=== PATIENT | female | born 1990 | race Caucasian/White ===

== ENCOUNTER 2017-01-09 23:43 | Emergency (ER) | payer SELFPAY ==
[~2017-01-09] VITALS: Ht 160 cm; Wt 61.7 kg
--- NOTE | 2017-01-10 01:01 | NUR ---
Pt seen by Dr. Bower. Pt had breast lift and augmentation done on the in [place] and was unable to follow up. Pt had dehiscence under the right breast and a few remaining sutures that did not disolve. Sutures removed, wound cleaned, triple antibiotic ointment applied, drsg applied. Pt stable for discharge per Dr. Bower. Pt given ACI. Pt verbalized understanding of dc instructions. Pt ambulated out of ER with steady gait and ride home.
[2017-01-10 01:11] VITALS: BP 101/67
== END 2017-01-10 01:12 | disposition home or self-care (01) ==
LOC: ER 23:43
DX: T81.31XA Disruption of external operation (surgical) wound, not elsewhere classified, initial encounter (principal)
CPT/HCPCS: 99283; A4217; A4663

== ENCOUNTER 2017-01-12 23:09 | Emergency (ER) | payer MEDICAID ==
[~2017-01-12] VITALS: Ht 157.5 cm; Wt 61.7 kg
--- NOTE | 2017-01-13 | NUR ---
Patient discharged to home in stable conditon. Written and verbal after care instructions given. Patient verbalizes understanding of instructions.
[2017-01-13 00:01] VITALS: BP 112/72
== END 2017-01-13 00:02 | disposition home or self-care (01) ==
LOC: ER 23:10
DX: T81.30XA Disruption of wound, unspecified, initial encounter (principal)
CPT/HCPCS: A4663

== ENCOUNTER 2017-03-16 23:15 | Emergency (ER) | payer SELFPAY ==
[~2017-03-16] VITALS: Ht 165.1 cm; Wt 61.2 kg
--- NOTE | 2017-03-17 00:06 | NUR ---
Patient discharged to home in stable conditon. Written and verbal after care instructions given. Patient verbalizes understanding of instructions.ambulated from er w/ stable gaits, all belongings w/ pt.
[2017-03-17 00:09] VITALS: BP 125/75
== END 2017-03-17 00:11 | disposition home or self-care (01) ==
LOC: ER 23:22
DX: Z48.00 Encounter for change or removal of nonsurgical wound dressing (principal)
CPT/HCPCS: 99281; A4663

== ENCOUNTER 2018-09-18 20:55 | Emergency (ER) | payer OTHER ==
[~2018-09-18] VITALS: Ht 157.5 cm; Wt 63.0 kg
[2018-09-18] MEDS ORDERED: IV NORMAL SALINE 1000 ML BAG IV ONE (21:30)
[2018-09-18] MEDS ORDERED: KETOROLAC TROMETHAMINE 15 MG INJ IV ONE (21:30)
[2018-09-18] MEDS ORDERED: KETOROLAC TROMETHAMINE 30 MG INJ ONE (21:35)
[2018-09-18 21:48] LABS: BASOPHILS # (AUTO) 0.1 K/uL (0.0-8.0); BASOPHILS % (AUTO) 0.5 % (0.0-2.0); EOSINOPHILS # (AUTO) 0.1 K/uL (0.0-0.7); EOSINOPHILS % (AUTO) 0.6 % (0.0-7.0); HEMATOCRIT 41.5 % (31.2-41.9); HEMOGLOBIN 13.8 g/dL (10.9-14.3); LYMPHOCYTES # (AUTO) 1.6 K/uL (20.0-40.0); LYMPHOCYTES % (AUTO) 12.2 % (20.5-51.5); MEAN CORPUSCULAR HEMOGLOBIN 29.4 uug (24.7-32.8); MEAN CORPUSCULAR HGB CONC 33 g/dL (32.3-35.6); MEAN CORPUSCULAR VOLUME 88.1 fL (75.5-95.3); MONOCYTES # (AUTO) 0.8 K/uL (2.0-10.0); MONOCYTES % (AUTO) 6.2 % (0.0-11.0); NEUTROPHILS # (AUTO) 10.8 K/uL (1.8-8.9); NEUTROPHILS % (AUTO) 80.5 % (38.5-71.5); PLATELET COUNT (AUTO) 222 K/uL (179-408); RED BLOOD CELL COUNT(AUTO) 4.71 MIL/uL (3.63-4.92); WHITE BLOOD COUNT (AUTO) 13.4 K/uL (3.8-11.8)
[2018-09-18 21:49] LABS: *BILIRUBIN,URIN NEGATIVE (NEGATIVE); *BLOOD, URINE 1+ (NEGATIVE); *CLARITY,URINE CLEAR (CLEAR); *COLOR,URINE YELLOW (YELLOW); *KETONES,URINE NEGATIVE (NEGATIVE); *UROBILINOGEN,URINE 0.2 E.U./dl (NORMAL); LEUKOCYTE ESTERASE ,URINE 1+ (NEGATIVE); NITRITE, URINE NEGATIVE (NEGATIVE); PH,URINE 7.5 (5.0-8.0); UGLUCOSE NEGATIVE (NEGATIVE)
[2018-09-18 21:53] LABS: *URINE HCG, QUAL NEGATIVE (NEGATIVE)
[2018-09-18 21:54] LABS: CREATININE 0.6 mg/dL (0.6-1.3); POTASSIUM 3.6 mmol/L (3.5-5.1)
[2018-09-18 21:59] LABS: BACTERIA,URINE FEW /HPF (NONE SEEN); RBC,URINE 0-3 /HPF (0-3); SQUAMOUS EPITHELIAL CELL,UR MODERATE /HPF (NONE SEEN)
[2018-09-18 22:05] LABS: BILIRUBIN,DIRECT 0.2 mg/dL (0.0-0.2); BILIRUBIN,TOTAL 1.5 mg/dL (0.2-1.0); TOTAL PROTEIN, SERUM 8.5 g/dL (6.4-8.2)
--- NOTE | 2018-09-18 22:05 | NUR ---
US TECH INTO DO PROCEDURE
--- NOTE | 2018-09-18 22:20 | NUR ---
PATIENT REQUESTING TO TAKE TORADOL NOW. REFUSED MED EARLIER
--- NOTE | 2018-09-18 22:52 | NUR ---
DR GUERRA INTO RE EVAL PATIENT ABDOMINAL PAIN. PATIENT TENDER. ORDERS RECIEVED AND CARRIED OUT.
[2018-09-18] MEDS ORDERED: SWABABLE VALVE TRANSFER SET EA MC ONE (22:59)
[2018-09-18] MEDS ORDERED: IOHEXOL 300MG/ML 100 ML INFUS..BTL ONE (22:59)
[2018-09-18] MEDS ORDERED: IV NORMAL SALINE 250 ML IV ONE (22:59)
--- NOTE | 2018-09-19 00:49 | NUR ---
IV removed. Catheter intact and site benign. Pressure and 4x4 gauze applied to site. No bleeding noted.
--- NOTE | 2018-09-19 00:52 | NUR ---
Patient discharged to home in stable conditon. Written and verbal after care instructions given. Patient verbalizes understanding of instructions. WALKED OUT OF ER WITH NO DISTRESS NOTED
[2018-09-19 00:53] VITALS: BP 128/88
== END 2018-09-19 00:54 | disposition home or self-care (01) ==
LOC: ER 20:56
DX: N39.0 Urinary tract infection, site not specified (principal)
CPT/HCPCS: 36415; 74177; 76856; 80048; 80076; 81000; 81001; 83690; 84703; 85025; 87086; 96374; 99284; J1885; Q9967; A4663; J7030; J7050

== ENCOUNTER 2019-03-27 19:55 | Emergency (ER) | payer OTHER ==
[~2019-03-27] VITALS: Ht 157.5 cm; Wt 66.2 kg
--- NOTE | 2019-03-27 19:55 | NUR ---
Dr. Hanson at bedside for MSE
[2019-03-27 20:07] LABS: *BILIRUBIN,URIN NEGATIVE (NEGATIVE); *BLOOD, URINE 1+ (NEGATIVE); *CLARITY,URINE SLIGHTLY CLOUDY (CLEAR); *COLOR,URINE YELLOW (YELLOW); *KETONES,URINE NEGATIVE (NEGATIVE); *UROBILINOGEN,URINE 0.2 E.U./dl (NORMAL); LEUKOCYTE ESTERASE ,URINE 1+ (NEGATIVE); NITRITE, URINE NEGATIVE (NEGATIVE); UGLUCOSE NEGATIVE (NEGATIVE)
[2019-03-27 20:08] LABS: *URINE HCG, QUAL NEGATIVE (NEGATIVE)
[2019-03-27] MEDS ORDERED: SULFAMETH/TRIMETH 800/160 MG TABLET PO ONE (20:30)
[2019-03-27 20:38] LABS: BACTERIA,URINE FEW /HPF (NONE SEEN); SQUAMOUS EPITHELIAL CELL,UR FEW /HPF (NONE SEEN)
--- NOTE | 2019-03-27 20:38 | NUR ---
Patient discharged to home in stable conditon. Written and verbal after care instructions given. Patient verbalizes understanding of instructions. Patient ambulating with steady gait
[2019-03-27] MEDS ORDERED: SULFAMETH/TRIMETH 800/160 MG TABLET ONE (20:39)
[2019-03-27 21:30] VITALS: BP 126/73
== END 2019-03-27 20:38 | disposition home or self-care (01) ==
LOC: ER 19:56
DX: N39.0 Urinary tract infection, site not specified (principal); F17.200 Nicotine dependence, unspecified, uncomplicated
CPT/HCPCS: 84703; 87086; A4663

== ENCOUNTER 2019-08-16 16:30 | Emergency (ER) | payer OTHER ==
[~2019-08-16] VITALS: Ht 157.5 cm; Wt 65.8 kg
--- NOTE | 2019-08-16 16:52 | NUR ---
Dr Hanson at the bedside for MSE.
[2019-08-16 17:00] LABS: *BILIRUBIN,URIN NEGATIVE (NEGATIVE); *BLOOD, URINE 1+ (NEGATIVE); *COLOR,URINE LIGHT YELLOW (YELLOW); *KETONES,URINE NEGATIVE (NEGATIVE); *UROBILINOGEN,URINE 0.2 E.U./dl (NORMAL); LEUKOCYTE ESTERASE ,URINE TRACE (NEGATIVE); NITRITE, URINE NEGATIVE (NEGATIVE); PH,URINE 8.5 (5.0-8.0); UGLUCOSE NEGATIVE (NEGATIVE)
[2019-08-16 17:01] LABS: *URINE HCG, QUAL NEGATIVE (NEGATIVE)
[2019-08-16 17:05] LABS: *CLARITY,URINE SLIGHTLY HAZY (CLEAR)
[2019-08-16 17:06] LABS: BACTERIA,URINE FEW /HPF (NONE SEEN); SQUAMOUS EPITHELIAL CELL,UR MODERATE /HPF (NONE SEEN)
[2019-08-16] MEDS ORDERED: AZITHROMYCIN 250 MG TABLET ONE (17:28)
[2019-08-16] MEDS ORDERED: METRONIDAZOLE 500 MG TABLET ONE (17:29)
[2019-08-16] MEDS ORDERED: METRONIDAZOLE 500 MG TABLET PO ONE (17:30)
[2019-08-16] MEDS ORDERED: AZITHROMYCIN 250 MG TABLET PO ONE (17:30)
[2019-08-16 17:33] VITALS: BP 120/77
--- NOTE | 2019-08-16 17:35 | NUR ---
Patient discharged to home in stable condition. Written and verbal after care instructions given. Patient verbalizes understanding of instructions. Stressed follow up or return to ER for worsening s/s.
== END 2019-08-16 17:35 | disposition home or self-care (01) ==
LOC: ER 16:30
DX: N39.0 Urinary tract infection, site not specified (principal)
CPT/HCPCS: 84703; 87086; A4663; Q0144

== ENCOUNTER 2019-11-06 17:14 | Emergency (ER) | payer OTHER ==
[~2019-11-06] VITALS: Ht 157.5 cm; Wt 58.1 kg
--- NOTE | 2019-11-06 17:25 | NUR ---
Dr. Herrera at bedside for MSE
--- NOTE | 2019-11-06 17:54 | NUR ---
Patient discharged to home in stable condition. Written and verbal after care instructions given. Patient verbalizes understanding of instructions. Stressed follow up or return to ER for worsening s/s. Patient ambulating with steady gait. NAD noted
[2019-11-06 17:55] VITALS: BP 106/83
== END 2019-11-06 17:54 | disposition home or self-care (01) ==
LOC: ER 17:18
DX: L03.115 Cellulitis of right lower limb (principal); S90.811A Abrasion, right foot, initial encounter; X58.XXXA Exposure to other specified factors, initial encounter; Y93.01 Activity, walking, marching and hiking; Y92.89 Other specified places as the place of occurrence of the external cause
CPT/HCPCS: A4663

== ENCOUNTER 2021-01-10 20:05 | Emergency (ER) | payer MEDICAID, OTHER ==
[~2021-01-10] VITALS: Ht 157.5 cm; Wt 61.7 kg
[2021-01-10 20:19] LABS: *BILIRUBIN,URIN NEGATIVE (NEGATIVE); *BLOOD, URINE 2+ (NEGATIVE); *CLARITY,URINE CLOUDY (CLEAR); *COLOR,URINE DARK YELLOW (YELLOW); *KETONES,URINE TRACE (NEGATIVE); LEUKOCYTE ESTERASE ,URINE 1+ (NEGATIVE); NITRITE, URINE POSITIVE (NEGATIVE); UGLUCOSE TRACE (NEGATIVE)
[2021-01-10 20:25] LABS: BACTERIA,URINE MODERATE /HPF (NONE SEEN); SQUAMOUS EPITHELIAL CELL,UR FEW /HPF (NONE SEEN); WBC,URINE TNTC /HPF (0-3)
[2021-01-10 20:26] LABS: URINE AMORPHOUS URATE MANY /HPF
[2021-01-10 20:58] LABS: *BILIRUBIN,URIN NEGATIVE (NEGATIVE); *BLOOD, URINE NEGATIVE (NEGATIVE); *CLARITY,URINE CLEAR (CLEAR); *COLOR,URINE YELLOW (YELLOW); *KETONES,URINE NEGATIVE (NEGATIVE); *UROBILINOGEN,URINE 0.2 E.U./dl (NORMAL); LEUKOCYTE ESTERASE ,URINE NEGATIVE (NEGATIVE); NITRITE, URINE NEGATIVE (NEGATIVE); PH,URINE 6.5 (5.0-8.0); UGLUCOSE NEGATIVE (NEGATIVE)
[2021-01-10] MEDS ORDERED: PHENAZOPYRIDINE HCL 100 MG TABLET PO ONE (21:00)
[2021-01-10] MEDS ORDERED: SULFAMETH/TRIMETH 800/160 MG TABLET PO ONE (21:00)
[2021-01-10] MEDS ORDERED: PHEN-705 PO (21:04)
[2021-01-10] MEDS ORDERED: SULF1TAB48 PO (21:04)
--- NOTE | 2021-01-10 21:23 | NUR ---
Patient discharged to home in stable condition. Written and verbal after care instructions given. Patient verbalizes understanding of instructions. Stressed follow up or return to ER for worsening s/s. NAD. VSS. All belongings taken.
[2021-01-10] MEDS ORDERED: SULFAMETH/TRIMETH 800/160 MG TABLET ONE (21:24)
[2021-01-10] MEDS ORDERED: PHENAZOPYRIDINE HCL 100 MG TABLET ONE (21:24)
[2021-01-10 21:28] VITALS: BP 100/79
== END 2021-01-10 21:29 | disposition home or self-care (01) ==
LOC: ER 20:07
DX: N30.90 Cystitis, unspecified without hematuria (principal); Z98.82 Breast implant status
CPT/HCPCS: 87077; 87086; A4663

== ENCOUNTER 2021-06-24 15:40 | Emergency (ER) | payer OTHER ==
[~2021-06-24] VITALS: Ht 157.5 cm; Wt 63.5 kg
[~2021-06-24 15:40] MED LIST: PHEN-705 PO; SULF1TAB48 PO
[2021-06-24] MEDS ORDERED: KETOROLAC TROMETHAMINE 15 MG INJ IVP ONE (17:00)
[2021-06-24] MEDS ORDERED: IV NORMAL SALINE 1000 ML BAG IV ONE (17:00)
[2021-06-24] MEDS ORDERED: METOCLOPRAMIDE HCL 10 MG/2 ML VIAL IV ONE (17:00)
[2021-06-24 17:06] LABS: HEMATOCRIT 36.9 % (31.2-41.9); MEAN CORPUSCULAR HEMOGLOBIN 28.3 uug (24.7-32.8); MEAN CORPUSCULAR VOLUME 85.2 fL (75.5-95.3); PLATELET COUNT (AUTO) 265 K/uL (179-408)
[2021-06-24] MEDS ORDERED: KETOROLAC TROMETHAMINE 15 MG INJ ONE (17:07)
[2021-06-24] MEDS ORDERED: METOCLOPRAMIDE HCL 10 MG/2 ML VIAL ONE (17:07)
[2021-06-24 17:12] LABS: CREATININE 0.7 mg/dL (0.6-1.3); POTASSIUM 3.8 mmol/L (3.5-5.1)
[2021-06-24 17:18] LABS: BILIRUBIN,DIRECT 0.1 mg/dL (0.0-0.2); BILIRUBIN,TOTAL 0.4 mg/dL (0.2-1.0); TOTAL PROTEIN, SERUM 7.5 g/dL (6.4-8.2)
[2021-06-24] MEDS ORDERED: ONDA4TAB5 PO (17:48)
[2021-06-24] MEDS ORDERED: DEXAMETHASONE SOD PHOSPHATE 4 MG INJ IV ONE (18:00)
[2021-06-24] MEDS ORDERED: DEXAMETHASONE SOD PHOSPHATE 4 MG INJ ONE ×2 (18:08→18:12)
[2021-06-25 09:46] VITALS: BP 110/62
== END 2021-06-24 18:00 | disposition home or self-care (01) ==
LOC: ER 15:43
DX: B34.9 Viral infection, unspecified (principal); Z20.822 Contact with and (suspected) exposure to COVID-19; E86.0 Dehydration; Z91.011 Allergy to milk products; Z91.018 Allergy to other foods
CPT/HCPCS: 36415; 80048; 80076; 83690; 84702; 85025; 86403; 87070; 87400; 87426; 96361; 96374; 96375; 99284; J1100 ×2; J1885; J2765; A4663; J7030

== ENCOUNTER 2022-02-14 14:07 | Emergency (ER) | payer OTHER ==
[~2022-02-14] VITALS: Ht 154.9 cm; Wt 60.8 kg
[~2022-02-14 14:07] MED LIST changes: +ONDA4TAB5 PO
[2022-02-14 14:51] LABS: *BILIRUBIN,URIN 1+ (NEGATIVE); *BLOOD, URINE 3+ (NEGATIVE); *CLARITY,URINE CLOUDY (CLEAR); *COLOR,URINE DARK YELLOW (YELLOW); *KETONES,URINE 1+ (NEGATIVE); *UROBILINOGEN,URINE 0.2 E.U./dl (NORMAL); LEUKOCYTE ESTERASE ,URINE 1+ (NEGATIVE); NITRITE, URINE NEGATIVE (NEGATIVE); PH,URINE 5.5 (5.0-8.0); UGLUCOSE NEGATIVE (NEGATIVE)
[2022-02-14 14:53] LABS: *URINE HCG, QUAL NEGATIVE (NEGATIVE)
[2022-02-14 14:59] LABS: RBC,URINE 80-100 /HPF (0-3)
[2022-02-14 15:00] LABS: SQUAMOUS EPITHELIAL CELL,UR MODERATE /HPF (NONE SEEN)
--- NOTE | 2022-02-14 15:00 | NUR ---
Pt arrived with c/o pain on the right lower back radiating to the RLQ of the abdomen, rated 10/10, dysuria present, manifested facial grimacing and guarding of the site. Pt stated that she thinks she has UTI since she's familiar with the symptoms and that she had hx of uti. Seen by HAROON for MSE.
[2022-02-14 15:01] LABS: BACTERIA,URINE FEW /HPF (NONE SEEN)
[2022-02-14] MEDS ORDERED: CEPH500T PO (15:14)
[2022-02-14 15:15] LABS: WBC,URINE 20-50 /HPF (0-3)
[2022-02-14] MEDS ORDERED: CEphaleXIN 500 MG CAPSULE PO ONE (15:15)
[2022-02-14] MEDS ORDERED: CEphaleXIN 500 MG CAPSULE ONE (15:15)
--- NOTE | 2022-02-14 15:22 | NUR ---
Pt discharged to home in stable condition. Received first dose of Keflex. Written and verbal after care instructions given. Pt verbalizes understanding of instructions. Stressed follow up or return to ER for worsening s/s.
[2022-02-14 15:25] VITALS: BP 132/76
== END 2022-02-14 15:20 | disposition home or self-care (01) ==
LOC: ER 14:10
DX: N39.0 Urinary tract infection, site not specified (principal); R31.9 Hematuria, unspecified; Z98.82 Breast implant status; Z87.440 Personal history of urinary (tract) infections
CPT/HCPCS: 84703; 87086; A4663